=== PATIENT | male | born 1945 | race Caucasian/White ===

== ENCOUNTER 2024-02-17 05:48 | Inpatient (IN) | payer OTHER ==
[2024-02-16 10:21] VITALS: BMI 31.1
[2024-02-17] MEDS ORDERED: Vancomycin 1 GM VIAL ONE (07:05)
[2024-02-17] MEDS ORDERED: Thrombin 5000 UNITS/5 ML VIAL ONE (07:05)
[2024-02-17 07:07] LABS: Hematocrit 33.6 % (42.0-52.0); Hemoglobin 11.5 g/dL (14.0-18.0); Mean Corpuscular HGB CONC 34.2 g/dL (32.0-36.0); Mean Corpuscular Hemoglobin 29.8 pg (27.0-31.0); Mean Platelet Volume 9.7 fL (7.4-10.4); Platelet Count 219 10x3/uL (130-400); RBC Distribution Width 13.9 % (11.5-14.5); Red Blood Cell (RBC) Count 3.86 mill/uL (4.70-6.10)
[2024-02-17] MEDS ORDERED: Fentanyl 250 MCG/5 ML VIAL ONE (07:14)
[2024-02-17] MEDS ORDERED: Dexamethasone 20 MG/5 ML VIAL ONE (07:15)
[2024-02-17] MEDS ORDERED: CEFAZOLIN 2 GM VIAL ONE (07:15)
[2024-02-17] MEDS ORDERED: Lidocaine 1% PF 5 ML VIAL ONE (07:15)
[2024-02-17] MEDS ORDERED: Ondansetron PF 4 MG/2 ML Vial ONE ×2 (07:15→10:24)
[2024-02-17] MEDS ORDERED: Rocuronium Bromide 10 MG/ML (10ML VIAL) ONE ×2 (07:15→09:09)
[2024-02-17] MEDS ORDERED: PHENYLEPHRINE-NS 100 MCG/ML 10 ML SYRINGE ONE ×3 (07:15→09:39)
[2024-02-17] MEDS ORDERED: Glycopyrrolate 0.2 MG/ML 5 ML SYRINGE ONE (07:15)
[2024-02-17] MEDS ORDERED: fentaNYL PF 100 MCG/2 ML SYRINGE ONE (07:15)
[2024-02-17] MEDS ORDERED: PROPOFOL 20 ML ONE (07:20)
[2024-02-17] MEDS ORDERED: Scopolamine 1 mg/72 hour Patch ONE (07:22)
[2024-02-17 07:23] LABS: Anion Gap 14 mmol/L (10-20); BUN (Urea Nitrogen) 14 mg/dL (8.4-25.7); Calc. Creatinine Clearance 99 mL/min (70-130); Calcium 8.4 mg/dL (7.8-10.44); Carbon Dioxide 26 mmol/L (23-31); Chloride 103 mmol/L (98-107); Estimated GFR 89; Glucose 103 mg/dL (83-110); Potassium 3.1 mmol/L (3.5-5.1); Prothrombin Time 13.4 sec (12.0-14.7); Sodium 140 mmol/L (136-145)
[2024-02-17 07:24] LABS: PTT 29.7 sec (22.9-36.1)
[2024-02-17] MEDS ORDERED: ePHEDrine Sulfate 50 MG/10 ML VIAL ONE ×2 (08:06→09:26)
[2024-02-17] MEDS ORDERED: SUGAMMADEX SODIUM 200 MG/2 ML VIAL ONE (10:25)
[2024-02-17] MEDS ORDERED: Morphine 2 MG/ML VIAL SLOW IVP PRN (11:10)
[2024-02-17] MEDS ORDERED: Acetaminophen 325 MG TAB PO PRN (11:10)
[2024-02-17] MEDS ORDERED: Acetaminophen/Codeine 30-300mg Tablet PO PRN (11:10)
[2024-02-17] MEDS ORDERED: traMADol HCl 50 MG TAB PO PRN (11:10)
[2024-02-17] MEDS ORDERED: Milk Of Magnesia 30 ML UDCUP PO PRN (11:10)
[2024-02-17] MEDS ORDERED: Benzocaine/Menthol 1 LOZ LOZ PO PRN (11:15)
[2024-02-17] MEDS ORDERED: fentaNYL 50 mcg/mL 1 mL Vial ONE ×4 (11:16→12:24)
[2024-02-17] MEDS ORDERED: Promethazine HCl 25 MG/ML VIAL ONE (11:43)
[2024-02-17] MEDS: Sodium Chloride 0.9% 1,000 ML IV SCH (12:42)
[2024-02-17] MEDS: HYDROcodone/Acetaminophen 7.5/325 mg Tablet PO PRN (14:32)
[2024-02-17] MEDS: Gabapentin 100 MG CAP PO SCH (14:32)
[2024-02-17] MEDS: CEFAZOLIN 2 GM in Sodium Chloride 0.9% 100 ML IVPB SCH (14:32)
[2024-02-17] MEDS: metFORMIN 500 MG TAB PO SCH (17:03)
[2024-02-17] MEDS: Atorvastatin Calcium 40 MG TAB PO SCH (21:32)
[2024-02-18] MEDS: Valsartan 80 MG TAB PO SCH (08:20)
[2024-02-18] MEDS: Potassium Chloride 20 MEQ TAB PO SCH (08:20)
[2024-02-18] MEDS: Amlodipine 10 MG TAB PO SCH (08:21)
[2024-02-18] MEDS: Torsemide 10 MG TAB PO SCH (08:21)
[2024-02-18] MEDS: Ondansetron PF 4 MG/2 ML Vial IVP PRN (22:08)
[2024-02-19] MEDS: Cyclobenzaprine 10 MG TAB PO PRN (20:32)
[2024-02-20] MEDS: hydrALAZINE 20 MG/ML VIAL SLOW IVP PRN (11:31)
[2024-02-21] MEDS: Mag-Al 1200 mg/1200 mg/30 ML UDCUP PO PRN (06:06)
[2024-02-21 15:44] VITALS: BP 153/81; TEMP 98
== END 2024-02-21 16:17 | DRG 517 ==
LOC: SDC 05:48 → SURG B 13:25 → OBSVTOIN 02-18 08:11
PROVIDERS: ADMIT Surgery; ATTEND Surgery
PROC: 01NB0ZZ Release Lumbar Nerve, Open Approach (ICD-10-PCS; principal; 2024-02-17)
DX: M48.062 Spinal stenosis, lumbar region with neurogenic claudication (principal); M54.16 Radiculopathy, lumbar region; I10 Essential (primary) hypertension; E11.9 Type 2 diabetes mellitus without complications; E78.00 Pure hypercholesterolemia, unspecified; E66.9 Obesity, unspecified; Z79.82 Long term (current) use of aspirin; Z68.31 Body mass index [BMI] 31.0-31.9, adult
CPT/HCPCS: 80048; 85027; 85610; 85730; J0360; J1100; J2405; J2550; J2704; J3010; J3370